=== PATIENT | male | born 1950 | race Caucasian/White ===

== ENCOUNTER 2018-06-13 06:56 | Day surgery (SDC) | payer MEDICARE, OTHER ==
[~2018-06-13] VITALS: Ht 177.8 cm; Wt 108.9 kg
[~2018-06-13 06:56] MED LIST: AMANTADINE100 M1 PO; ASPIR-LOW81 MG PO; CARBIDOPA-LEVO1 EAC1 PO; CENTRUM SILVER1 EAC3 PO; ESCITALOPRAM OX20 MG PO; FLOMAX0.4 MG PO; LIPITOR40 MG PO; MECLIZINE HCL25 MG PO; VITAMIN D31000 UNI1 PO
[2018-06-13] MEDS ORDERED: TRIHEXYPHENIDYL2 MG PO (07:13)
--- NOTE | 2018-06-13 08:55 | NUR ---
06/13/18 0855 Teresa Gonzalez 0846 PATIENT ARRIVES TO PACU SLEEPING, OPENS EYES WITH VERBAL STIMULI. RESP EVEN AND UNLABORED, NC AT 3 LITERS TURNED OFF ON ARRIVAL TO PACU. ROOM AIR SATS >90%. PATIENT DENIES PAIN OR NAUSEA, THEN BACK TO SLEEP. 0850 PATIENT OPENS EYES WITH VERBAL STIMULI, STAYS AWAKE. DENIES PAIN OR NAUSEA.
--- NOTE | 2018-06-14 07:00 | OR ---
[facility] [address], [place] [address] Signed DATE OF OPERATION: 06/13/2018 SURGEON: Reji Goldman MD PREOPERATIVE DIAGNOSES: 1. Personal history of colonic polyps in 2013. 2. Hemorrhoids. 3. Mother with colon cancer in her 80s. 4. Personal history of diverticulosis. 5. Daughter with colonic polyps in her 20s. 6. Constipation. POSTOPERATIVE DIAGNOSES: 1. A 7 mm polyp at 65 cm. 2. [id number]-[id number] internal hemorrhoids. PROCEDURE PERFORMED: Colonoscopy with hot biopsy. ESTIMATED BLOOD LOSS: None. INDICATIONS: Dannie is a 67-year-old gentleman, who was asked to see me for colonoscopy. He had adenomatous polyps removed back in 2013. He is known to have some constipation associated with diverticulosis and has hemorrhoids. He told me his mother had colon cancer in her 80s. His daughter had colonic polyps removed in her 20s. He is now retired from doing [employer] work. He said he has Parkinson disease. He just went through a full cardiac evaluation to his primary care provider and all that came out negative. He presents today for his followup colonoscopy. He is in the office. I gave him a pamphlet on colonoscopy and he understands the nature of that test along with its risks including, but not limited to gas, bloating, crampy abdominal pain, bleeding, perforation, requiring surgery, and missed diagnosis. He also understands the need for IV conscious sedation. He had expressed understanding and wished to proceed. PROCEDURE NOTE: Dannie was taken into our endoscopy suite and placed in the left lateral decubitus position. He was given IV sedation with 7 mg of Versed and 125 mcg of fentanyl. A digital rectal exam was performed and this showed some induration to the prostate, but it seemed to be symmetric on both sides. Not too much really in the way of external Electronically Signed By: REJI GOLDMAN MD 06/14/18 0700 PATIENT NAME: STEF ARIAS OPERATIVE REPORT DATE OF : 54 REPORT #: [id number] PHYSICIAN: REJI GOLDMAN MD PCP: SHAYLEE BOLES MD REPORT IS CONFIDENTIAL AND NOT TO BE RELEASED WITHOUT AUTHORIZATION [facility] [address], [place] [address] Signed hemorrhoids. He has good sphincter tone. The adult colonoscope was introduced and advanced all around into the cecum under direct visualization of camera. He did require some abdominal compression to get around the hepatic flexure and down into the cecum itself. His prep was quite good. The scope was slowly withdrawn. We could easily see the ileocecal valve and the [place]'s foot. Pictures were taken throughout for photodocumentation. He had a diverticulum back at 65 cm. This was easily removed with hot biopsy forceps. We did not specifically see the diverticula on this occasion. The rectum was unremarkable. Upon retroflexion of scope, he does have some [id number] internal hemorrhoid tissue. After this, the gas was suctioned out and the colonoscope removed. Dannie tolerated the procedure quite well. RECOMMENDATIONS: I will see dannie back in my office in 7 to 14 days to review his results. It looks like he will be on the 5-year rotation. Reji Goldman MD ALB/MODL /[id number] cc: MD Reji Mcleod MD Copies: REJI GOLDMAN MD ~ Electronically Signed By: REJI GOLDMAN MD 06/14/18 0700 PATIENT NAME: STEF ARIAS OPERATIVE REPORT DATE OF : 54 REPORT #: [id number] PHYSICIAN: REJI GOLDMAN MD PCP: SHAYLEE BOLES MD REPORT IS CONFIDENTIAL AND NOT TO BE RELEASED WITHOUT AUTHORIZATION
== END 2018-06-13 09:25 | disposition home or self-care (01) ==
LOC: DS 06:56 → OPS 06:56 → DS 08:15 → OPS 08:15
PROVIDERS: Colon & Rectal Surgery
PROC: 0DBE8ZZ Excision of Large Intestine, Via Natural or Artificial Opening Endoscopic (ICD-10-PCS; principal; 2018-06-13 08:15)
DX: D12.6 Benign neoplasm of colon, unspecified (principal); K64.8 Other hemorrhoids; K59.00 Constipation, unspecified; I10 Essential (primary) hypertension; E78.00 Pure hypercholesterolemia, unspecified; F03.90 Unspecified dementia, unspecified severity, without behavioral disturbance, psychotic disturbance, mood disturbance, and anxiety; Z86.010 Personal history of colon polyps; Z80.0 Family history of malignant neoplasm of digestive organs; Z98.890 Other specified postprocedural states; Z79.899 Other long term (current) drug therapy
CPT/HCPCS: 99153; G0500; J2250; J3010; J7120

== ENCOUNTER 2022-03-19 10:47 | Emergency (ER) | payer MEDICARE, OTHER ==
[~2022-03-19] VITALS: Ht 177.8 cm; Wt 108.9 kg
[~2022-03-19 10:47] MED LIST changes: +TRIHEXYPHENIDYL2 MG PO
== END 2022-03-19 12:24 | disposition home or self-care (01) ==
LOC: ED 10:47
DX: S43.402A Unspecified sprain of left shoulder joint, initial encounter (principal); Z79.899 Other long term (current) drug therapy; W19.XXXA Unspecified fall, initial encounter
CPT/HCPCS: 73030; 99283-25; A9270

== ENCOUNTER 2024-08-05 06:19 | Emergency (ER) | payer MEDICARE, OTHER ==
[~2024-08-05] VITALS: Ht 177.8 cm; Wt 107.0 kg
[~2024-08-05 06:19] MED LIST changes: +CALCIUM500 MG PO; +QUETIAPINE FUMA50 MG PO; +TOPAMAX25 MG PO; -VITAMIN D31000 UNI1 PO; +VITAMIN D350 MCG PO; +XANAX0.25 MG PO
[2024-08-05] MEDS ORDERED: OXYBUTYNIN CHLOR5 MG PO (06:34)
[2024-08-05 06:58] LABS: BASOPHILS 0.7 % (0-2); EOSINOPHILS 2.8 % (0-6); HEMATOCRIT 40.1 % (35.0-50.0); HEMOGLOBIN 13.6 g/dL (12.0-18.0); LYMPHOCYTES 27.1 % (24-44); MCH 29.7 (27-36); MCV 87.5 fl (81-99); MONOCYTES 15.1 % (0-12); NEUTROPHILS 54.3 % (39-80); PLATELET COUNT 112 K/uL (140-440); RBC 4.58 M/ul (4.3-5.7); RDW 13.8 (10.5-15.0)
[2024-08-05] MEDS ORDERED: TRANEXAMIC ACID IN NACL,ISO-OS 1,000 MG/100 ML PIGGYBACK IV ONE (07:00)
[2024-08-05] MEDS ORDERED: TRANEXAMIC ACID 1,000 MG/10 ML AMP TOP ONE (07:00)
[2024-08-05 07:06] LABS: INR 1.08 (0.80-1.30); PROTIME 13.6 Sec (11.2-14.2)
[2024-08-05 07:08] LABS: PARTIAL THROMBOPLASTIN TIME 27.3 Sec (22.9-41.3)
[2024-08-05 07:11] LABS: ALBUMIN 3.5 g/dL (3.4-5.0); ALBUMIN/GLOBULIN RATIO 1.13 (1.1-2.4); ANION GAP 10.7 (7-21); BUN/CREATININE RATIO 21.73 (6.0-28.6); CALCIUM 8.4 mg/dL (8.5-10.1); CREATININE, SERUM 0.92 mg/dL (0.70-1.30); POTASSIUM 3.7 mmol/L (3.5-5.1); PROTEIN, TOTAL 6.6 g/dL (6.4-8.2)
[2024-08-05 08:22] VITALS: BP 129/80
== END 2024-08-05 08:23 | disposition home or self-care (01) ==
LOC: ED 06:19
PROVIDERS: Emergency Medicine
DX: K13.79 Other lesions of oral mucosa (principal); K08.9 Disorder of teeth and supporting structures, unspecified
CPT/HCPCS: 36415; 80053; 85025; 85610; 85730; 96365; 99284-25